=== PATIENT | female | born 2005 | race Caucasian/White ===

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

== ENCOUNTER 2024-05-12 12:32 | Emergency (ER) | payer OTHER, SELFPAY ==
[2024-05-12 13:05] VITALS: BP 156/96; PULSE 100; RESP 20; TEMP 37.4; O2SAT 98; BMI 32.1
--- NOTE | 2024-05-12 13:15 | ED_ITS ---
Discharge Plan Disposition Patient Disposition: Home, Self-Care Condition: Good Prescriptions Prescriptions: New amoxicillin 875 mg tablet 875 mg PO Q12H Qty: 20 0RF Referrals Follow up/Referrals: Jeri Pisano PA [Primary Care Provider] - See instructions Activity Restrictions/Add. Instructions Additional Instructions/Restrictions: *Monitor Temp, Over the counter Motrin or Tylenol as directed/as needed Tylenol every 4 hours and Motrin every 6 hours (as long as your family doctor has told you that you can take it) for fever or pain. and straight to ER if unable to lower temp less than 101.0 after medication given *Warm salt water gargles may help to soothe the throat *Throat Lozenges? *Warm fluids like tea with honey may help to soothe the throat? *Sleep elevated *Humidifier/Vaporizer Follow up IMMEDIATELY for new or worsening symptoms or no Noticeable improvement over the next 48-72 hours. 911 for difficulty breathing or swallowing You were tested for today for COVID19 your test result should be back in the next 24 hours, you may check your results on the [facility]iod[facility] Portal Clinical Impressions Clinical Impression: Otitis media Stand Alone Forms Stand Alone Forms: Work/School Release Instructions Patient Instructions: Middle Ear Infection, DI for COVID-19 (Suspected or Confirmed ) Print Language Print Language: [place] Discharge ED Provider: Mervat Green [facility] [place] HPI General Stated complaint: fever, sinus frances., body aches, chills, headache Mode of Arrival: Ambulatory Source of Information: Patient Limitations: No Limitations Time Seen by Provider: 05/12/24 13:15 Description of Symptoms (Recalled from Triage Doc. by RN): PATIENT C/O BODY ACHES, CONGESTION, HEADACHE, EAR PAIN, FEVER, AND FEELING TIRED X 2 DAYS. RECENTLY EXPOSED TO COVID HEENT Symptoms (Recalled from RN notes): Yes Resp Symptoms (Recalled from RN notes): No Skin Symptoms (Recalled from RN notes): No MS Symptoms (Recalled from RN notes): No Functional Status (Recalled from RN notes): WNL History of Present Illness Provider Complaint: Patient states that she was recently exposed to COVID States that she has been having bilateral ear pain, body aches, headache, fatigue and over all not feeling well so she came in to get checked Related Data Previous Rx's ?Medication ?Instructions ?Recorded amoxicillin 875 mg tablet 875 mg PO Q12H #20 tabs 05/12/24 Allergies Allergy/AdvReac Type Severity Reaction Status Date / Time azithromycin [AZITHROMYCIN] Allergy Unknown I-RASH Verified 04/20/24 13:00 Worker's Comp Is this a Worker's Comp case?: No [facility] Disclaimer: The information contained in this section may have been updated after the patient was seen, as this information can be updated by other users. Medical History (Updated 05/12/24 @ 13:39 by Mervat Green APRN) Encounter for initial prescription of Nexplanon Cough Sinusitis Anxiety and depression Thoracic outlet syndrome Bilateral otitis media Sinusitis Left otitis media Surgical History History of breast biopsy No significant past surgical history Family History Other No significant family history Social History Smoking Status: Never smoker alcohol intake: never substance use type: denies use current occupational status: student Travel in the last 8 weeks: None household members: family housing: house ROS Obtained: Yes All systems reviewed & no additional complaints except as documented and Yes Systems reviewed as appropriate & no additional complaints except as documented Constitutional Constitutional: Reports system reviewed and no additional complaints, except as documented, Reports as per HPI, Reports body ache, Reports chills, Reports fever(s) and Reports headache(s) ENT Ears, Nose, Mouth, and Throat: Reports system reviewed and no additional complaints, except as documented, Reports as per HPI, Reports otalgia, Reports headache(s), Reports nasal congestion and Reports nasal discharge Cardiovascular Cardiovascular: Reports system reviewed and no additional complaints, except as documented and Reports as per HPI Respiratory Respiratory: Reports system reviewed and no additional complaints, except as documented and Reports as per HPI Gastrointestinal Gastrointestingal: Reports system reviewed and no additional complaints, except as documented and as per HPI Neurologic Neurologic: Reports headache(s) Physical Exam General General appearance: alert and in no apparent distress ENT ENT exam: Present mucous membranes moist Expanded ENT Exam TM/Canal exam: Right TM: erythema and Bilateral TM: bulging Nose exam: Absent sinus tenderness Respiratory Respiratory exam: Present normal lung sounds bilaterally; Absent respiratory distress or wheezes Cardiovascular Cardiovascular exam: Present regular rate, normal rhythm and tachycardia Abdominal Exam Abdominal exam: Present soft and normal bowel sounds; Absent distention or tenderness Neurological Exam Neurological exam: Present alert, oriented X3 and normal gait Medical Decision Making [place] Inquiry Pt receiving controlled substance: No [place] was queried for this patient: No Vital Signs: 05/12/24 13:05 Temperature 99.4 F Temperature Source Oral Pulse Rate [Left Brachial] 100 H Respiratory Rate 20 Blood Pressure [Left Arm] 156/96 H Blood Pressure Mean [Left Arm] 116 Blood Pressure Source [Left Arm] Automatic Cuff Blood Pressure Position [Left Arm] Sitting 02 Sat by Pulse Oximetry 98 Oxygen Delivery Method Room Air Orders (Tests/Meds): ORDERS Category Date Time Status Covid-19 Nasal PCR (H) Routine Lab 05/12/24 12:56 Ordered
[2024-05-12 13:42] VITALS: BP 156/96; PULSE 100; RESP 20; TEMP 37.4; O2SAT 98
== END 2024-05-12 13:44 | disposition home or self-care (01) ==
PROVIDERS: Emergency Provider Nurse Practitioner; PCP Student in an Organized Health Care Education/Training Program
DX: H66.91 Otitis media, unspecified, right ear (principal); R50.9 Fever, unspecified; R51.9 Headache, unspecified; H92.03 Otalgia, bilateral; Z20.822 Contact with and (suspected) exposure to COVID-19
CPT/HCPCS: 87635; 99212; 99214; G0463

== ENCOUNTER 2024-05-24 09:18 | Outpatient (CLI) | payer OTHER, SELFPAY ==
[2024-05-24 21:52] LABS: Basophils # 0.1 K/mm3 (0-0.2); Basophils % 0.7 % (0.1-2.0); Eosinophils # 0.1 K/mm3 (0.0-0.4); Eosinophils % 1.4 % (0.1-12.0); Hematocrit 45.7 % (37.0-47.0); Hemoglobin 14.3 g/dL (12.2-16.2); Lymphocytes % 27.6 % (10-50); Mean Corpuscular HGB Conc 31.4 g/dL (31.8-35.4); Mean Corpuscular Hemoglobin 28.7 pg (27.0-31.2); Mean Corpuscular Volume 91.6 fl (81-99); Mean Platelet Volume 9.1 fl (7.4-10.4); Monocytes # 0.5 K/mm3 (0.1-1.0); Monocytes % 7.4 % (1.7-9.3); Neutrophils # 4.6 K/mm3 (1.8-7.8); Platelet Count 379 K/mm3 (142-424); Red Blood Count 4.99 M/mm3 (4.20-5.40); Red Cell Distribution Width 13.7 % (11.5-17.5); White Blood Count 7.2 K/mm3 (4.5-13.0)
[2024-05-24 22:02] LABS: HCG Qualitative, Serum Negative (Negative)
[2024-05-24 22:09] LABS: Alanine Aminotransferase 42 U/L (12-78); Albumin Level 4.6 g/dl (3.5-5.0); Albumin/Globulin Ratio 1.4 (1.1-1.8); Alkaline Phosphatase 68 U/L (38-126); Anion Gap 16.5 mEq/L (5-15); Aspartate Amino Transferase 36 U/L (14-36); Bilirubin,Total 0.5 mg/dl (0.2-1.3); Blood Urea Nitrogen 15 mg/dl (7-17); Calcium 9.7 mg/dl (8.4-10.2); Carbon Dioxide 20 mmol/L (22.0-30.0); Chloride 107 mmol/L (98-107); Chol/HDL Ratio 2.9 (1-3.5); Cholesterol 164 mg/dl (140-200); Estimated Glomerular Filt Rate 107 ml/min (>60); GFR (African American) 129 ML/MIN (>60); Globulin 3.2 g/dL (1.3-3.2); Glucose 96 mg/dl (74-100); HDL Cholesterol 57 mg/dl (40-60); Potassium 4.5 mmoL/L (3.5-5.1); Sodium 139 mmol/L (136-145); Total Protein,Serum 7.8 g/dl (6.3-8.2); Triglycerides 98 mg/dl (30-150); VLDL Cholesterol 20 mg/dL (0-40)
[2024-05-24 22:22] LABS: Direct LDL Cholesterol 92.11 mg/dL (100-129)
[2024-05-24 22:25] LABS: 25-OH Vitamin D, Total 54.9 ng/mL (30-100)
[2024-05-24 22:39] LABS: Thyroid Stimulating Hormone 1.67 uIU/mL (0.465-4.68)
[2024-05-24 23:15] LABS: Vitamin B12 410 pg/mL (239-931)
[2024-05-24 23:30] LABS: Folate 7.84 ng/mL; HIV (1&2) Antibody Rapid NONREACTIVE (NONREACTIVE)
[2024-05-25 00:04] LABS: Iron 77 ug/dL (37-170)
[2024-05-25 00:13] LABS: Total Iron Binding Capacity 349 ug/dL (265-497)
[2024-05-25 00:40] LABS: Ferritin 48.6 ng/ml (6.24-137)
[2024-05-26 08:05] LABS: HCV Ab Non Reactive (Non Reactive)
[2024-05-26 15:15] LABS: EBV Ab VCA, IgM <36.0 U/mL (0.0-35.9); EBV Nuclear Antigen Ab, IgG >600.0 U/mL (0.0-17.9)
[2024-06-01 10:14] LABS: Antinuclear Antibodies (ANA) Non Reactive
== END 2024-05-24 23:59 | disposition home or self-care (01) ==
LOC: LAB.DROPOF 05-25 12:47
PROVIDERS: PCP Student in an Organized Health Care Education/Training Program; Visit Provider Student in an Organized Health Care Education/Training Program
DX: Z13.220 Encounter for screening for lipoid disorders (principal); Z83.49 Family history of other endocrine, nutritional and metabolic diseases; Z83.2 Family history of diseases of the blood and blood-forming organs and certain disorders involving the immune mechanism; R53.83 Other fatigue; Z13.1 Encounter for screening for diabetes mellitus; Z13.21 Encounter for screening for nutritional disorder; Z11.59 Encounter for screening for other viral diseases; Z11.4 Encounter for screening for human immunodeficiency virus [HIV]; Z13.29 Encounter for screening for other suspected endocrine disorder
CPT/HCPCS: 80050; 80053; 80061; 82306; 82607; 82728; 82746; 83036; 83540; 83550; 84443; 84703; 85025; 86038; 86225; 86235; 86664; 86665; 86803; 87389

== ENCOUNTER 2024-06-08 11:30 | Outpatient (CLI) | payer OTHER, SELFPAY ==
[2024-06-08 11:34] LABS: Adenovirus F 40/41, stool Not Detected (NotDetected); Astrovirus Not Detected (NotDetected); Campylobacter Not Detected (NotDetected); Clostridium Difficile A/B, PCR Not Detected (NotDetected); Cryptosporidium Not Detected (NotDetected); Cyclospora Cayetanesis Not Detected (NotDetected); Entamoeba histolytica Not Detected (NotDetected); Enteroaggregative E coli Not Detected (NotDetected); Enteropathogenic E coli Not Detected (NotDetected); Enterotoxigenic E coli Not Detected (NotDetected); Giardia lamblia Not Detected (NotDetected); Norovirus Not Detected (NotDetected); Plesimonas Shigalloides, PCR Not Detected (NotDetected); Rotavirus A Not Detected (NotDetected); Salmonella, PCR Not Detected (NotDetected); Sapovirus Not Detected (NotDetected); Shiga-like toxin E coli Not Detected (NotDetected); Shigella Enterovasive E coli Not Detected (NotDetected); Vibrio Cholerae Not Detected (NotDetected); Vibrio, PCR Not Detected (NotDetected); Yersinia Entercolitica, PCR Not Detected (NotDetected)
[2024-06-09 15:59] LABS: C difficile Toxins AB, EIA Negative (Negative)
== END 2024-06-08 23:59 | disposition home or self-care (01) ==
LOC: LAB 11:31
PROVIDERS: PCP Student in an Organized Health Care Education/Training Program; Visit Provider Nurse Practitioner Family
DX: K52.9 Noninfective gastroenteritis and colitis, unspecified (principal); R11.2 Nausea with vomiting, unspecified; R14.0 Abdominal distension (gaseous); Z86.19 Personal history of other infectious and parasitic diseases
CPT/HCPCS: 87324; 87507

== ENCOUNTER 2024-07-05 10:52 | Outpatient (CLI) | payer OTHER, SELFPAY ==
--- NOTE | 2024-07-05 10:52 | US_ITS ---
PROCEDURE INFORMATION: Exam: US Right Breast, Complete Exam date and time: 07/05/2024 11:03 AM Age: 19 years old Clinical indication: Personal history of papilloma. Follow-up after benign biopsy. Patient had a probably benign mass in the right breast retroareolar region, for short-term follow-up. TECHNIQUE: Imaging protocol: Complete ultrasound of all four quadrants of the right breast and the retroareolar regions, including ultrasound of the axilla when performed. COMPARISON: US BREAST RT COMPLETE 10/30/2023 10:49 AM FINDINGS: ULTRASOUND: Breast ultrasound findings: Mass in the right 11 o'clock axis, 2 cm from the nipple measures 0.4 x 0.4 x 0.4 cm, formerly measuring 0.4 x 0.3 x 0.4 cm, overall stable since 10/30/2023. No suspicious shadowing or distortion. Previously biopsied slightly irregular mass at the 9 o'clock axis is no longer seen on the current study. Biopsy demonstrated a papilloma. No abnormal ductal dilatation. No shadowing or distortion. No right axillary adenopathy. IMPRESSION: The probably benign mass in the right breast 11 o'clock axis, 2 cm from the nipple is overall stable since 10/30/2023 and six-month follow-up right breast ultrasound is recommended for continued close surveillance. ASSESSMENT: BI-RADS Category 3: Probably benign.
== END 2024-07-05 23:59 | disposition home or self-care (01) ==
LOC: RAD 10:52
PROVIDERS: PCP Nurse Practitioner Family; Visit Provider Nurse Practitioner Family
DX: N63.10 Unspecified lump in the right breast, unspecified quadrant (principal)
CPT/HCPCS: 76641

== ENCOUNTER 2024-07-09 15:03 | Emergency (ER) | payer OTHER, SELFPAY ==
[2024-07-09 15:17] VITALS: BP 157/106; PULSE 128; RESP 18; TEMP 36.9; O2SAT 100; BMI 29.7
[2024-07-09 15:30] LABS: UTC Influenza A Antigen Negative (Negative); UTC Strep Screen (Rapid) Negative (Negative)
[2024-07-09 15:31] LABS: UTC Influenza B Antigen Negative (Negative)
--- NOTE | 2024-07-09 15:59 | EXP.UTC ---
Discharge Plan Disposition Patient Disposition: Home, Self-Care Condition: Good Prescriptions Prescriptions: New Stahist AD 25-60 mg tablet 1 tab PO .6-8 hours MDD 3 Qty: 30 0RF No Action Nexplanon 68 mg implant 68 implant subdermal DIRECTED Referrals Follow up/Referrals: Walter Clark [Primary Care Provider] - See instructions Activity Restrictions/Add. Instructions Additional Instructions/Restrictions: Take medication as prescribed. Increase fluids and rest. If symptoms persist or worsen return to clinic/PCP. Check BP three times a week and record. Take record to PCP for a follow up. Hold off on taking Stahist until BP and pulse rate decrease. Avoid energy drinks. Clinical Impressions Clinical Impression: Upper respiratory tract infection, Acute viral pharyngitis Stand Alone Forms Stand Alone Forms: Work/School Release Instructions Patient Instructions: DI for Viral Upper Respiratory Infection -- Adult, DI for Viral Pharyngitis Print Language Print Language: Czech Discharge ED Provider: Nelda Miller [facility] [place] HPI General Stated complaint: congestion Mode of Arrival: Ambulatory Source of Information: Patient Time Seen by Provider: 07/09/24 15:58 Description of Symptoms (Recalled from Triage Doc. by RN): COUGH, SORE THROAT, FEVER, CONGESTION, FATIGUE, SENT HOME FROM WORK HEENT Symptoms (Recalled from RN notes): Yes Resp Symptoms (Recalled from RN notes): Yes Skin Symptoms (Recalled from RN notes): No MS Symptoms (Recalled from RN notes): No Functional Status (Recalled from RN notes): WNL History of Present Illness Provider Complaint: COUGH, SORE THROAT, FEVER, CONGESTION, FATIGUE, SENT HOME FROM WORK. REPORTS THAT FAMILY MEMBERS ARE SICK WITH SIMILAR SYMPTOMS. WORKS IN HEALTHCARE. Of note: Pt BP elevated. Pt state that she drank a Red Bull this morning and has high pulse normally. Discussed the dangers of energy drinks with these symptoms. Related Data Home Medications ?Medication ?Instructions ?Recorded ?Confirmed etonogestrel 68 mg subdermal 68 implant subdermal DIRECTED 05/24/24 07/09/24 implant (Nexplanon) Previous Rx's ?Medication ?Instructions ?Recorded chlorcyclizine-pseudoephedrine 25 1 tab PO .6-8 hours #30 tabs 07/09/24 mg-60 mg tablet (Stahist AD) Allergies Allergy/AdvReac Type Severity Reaction Status Date / Time azithromycin [AZITHROMYCIN] Allergy Unknown I-RASH Verified 06/29/24 09:14 Worker's Comp Is this a Worker's Comp case?: No [facility] Disclaimer: The information contained in this section may have been updated after the patient was seen, as this information can be updated by other users. Medical History Encounter for initial prescription of Nexplanon Nexplanon inserted 04/20/24 Cough Sinusitis Anxiety and depression Thoracic outlet syndrome Bilateral otitis media Sinusitis Left otitis media Surgical History History of breast biopsy No significant past surgical history Family History Other No significant family history Social History Smoking Status: Never smoker alcohol intake: never substance use type: denies use current occupational status: student Travel in the last 8 weeks: None household members: family housing: house ROS Obtained: Yes All systems reviewed & no additional complaints except as documented Constitutional Constitutional: Reports system reviewed and no additional complaints, except as documented, Reports body ache, Reports chills, Reports fever(s), Reports headache(s) and Reports malaise Eyes Eyes: Reports system reviewed and no additional complaints, except as documented ENT Ears, Nose, Mouth, and Throat: Reports system reviewed and no additional complaints, except as documented, Reports headache(s), Reports nasal discharge, Reports odynophagia and Reports sore throat Cardiovascular Cardiovascular: Reports system reviewed and no additional complaints, except as documented Respiratory Respiratory: Reports system reviewed and no additional complaints, except as documented Gastrointestinal Gastrointestingal: Reports system reviewed and no additional complaints, except as documented and odynophagia Genitourinary Female Genitourinary: Reports system reviewed and no additional complaints, except as documented Musculoskeletal Musculoskeletal: Reports system reviewed and no additional complaints, except as documented Integumentary/Breasts Skin/Breast: Reports system reviewed and no additional complaints, except as documented Neurologic Neurologic: Reports system reviewed and no additional complaints, except as documented and Reports headache(s) Endocrine Endocrine: Reports system reviewed and no additional complaints, except as documented Hematologic/Lymphatic Henatologic/Lymphatic: Reports system reviewed and no additional complaints, except as documented Allergic/Immunologic Allergic/Immunologic: Reports system reviewed and no additional complaints, except as documented Physical Exam General General appearance: alert Comment: ill appearing Head Head exam: atraumatic and normocephalic Eye Eye exam: Present normal appearance ENT ENT exam: Present mucous membranes moist Expanded ENT Exam External ear exam: Present normal external inspection Nasal speculum exam: Bilateral: other (clear drainage) Mouth exam: Present normal external inspection Teeth exam: Present normal inspection Throat exam: Present tonsillar erythema Comment: soft palate tiny ulceration. Neck Neck exam: Present normal inspection Chest Chest inspection: Present normal inspection and symmetric chest wall rise Respiratory Respiratory exam: Present normal lung sounds bilaterally Cardiovascular Cardiovascular exam: Present regular rate and normal rhythm Abdominal Exam Abdominal exam: Present soft and normal bowel sounds Extremities Exam Extremities exam: Present normal inspection Back Exam Back exam: Present normal inspection Neurological Exam Neurological exam: Present alert and oriented X3 Psychiatric Psychiatric exam: Present normal affect and normal mood Skin Skin exam: Present warm, dry and intact Lymphatic Lymphatic Findings: no adenopathy Medical Decision Making Medical Records Screening: Per USPSTF and CDC recommendations, given the prevalence of disease in our region, it is our hospital?s policy to screen for HIV and viral Hepatitis for all patients aged 18 and over and those with ongoing risk factors. Sidney Inquiry Pt receiving controlled substance: No Sidney was queried for this patient: No Vital Signs: 07/09/24 15:17 Temperature 98.4 F Temperature Source Oral Pulse Rate [Left Radial] 128 H Respiratory Rate 18 Blood Pressure [Left Arm] 157/106 H Blood Pressure Mean [Left Arm] 123 02 Sat by Pulse Oximetry 100 Lab Data Lab Results 07/09/24 15:22: Influenza Type A Ag Negative, Influenza Type B Ag Negative, Strep Scn Rapid Clinic Negative Orders (Tests/Meds): ORDERS Category Date Time Status Strep Screen Confirmation Stat Micro 07/09/24 15:22 Received
[2024-07-09 16:28] VITALS: BP 140/80; PULSE 128; RESP 18; TEMP 36.9
== END 2024-07-09 16:29 | disposition home or self-care (01) ==
PROVIDERS: Emergency Provider Nurse Practitioner Family; PCP Ophthalmology
DX: J02.9 Acute pharyngitis, unspecified (principal)
CPT/HCPCS: 87635; 87804; 87880; 99213; G0381

== ENCOUNTER 2024-07-26 08:34 | Emergency (ER) | payer OTHER, SELFPAY ==
[2024-07-26 08:45] VITALS: BP 143/86; PULSE 101; RESP 19; TEMP 36.8; O2SAT 100; BMI 31.4
--- NOTE | 2024-07-26 09:00 | EXP.UTC ---
Discharge Plan Disposition Patient Disposition: Home, Self-Care Condition: Good Prescriptions Prescriptions: No Action Nexplanon 68 mg implant 68 implant subdermal DIRECTED Referrals Follow up/Referrals: Jeri Pisano PA [Primary Care Provider] - See instructions Activity Restrictions/Add. Instructions Additional Instructions/Restrictions: You were evaluated in the ER and are appropriate for discharge at this time. Take Tylenol or ibuprofen if needed for pain, do not exceed the recommended dose on the bottle. Make an appointment with your primary care doctor for reevaluation in 2 to 3 days, also follow-up with OB as soon as possible. Return to the ER with new, worsening, or otherwise concerning symptoms. Clinical Impressions Clinical Impression: Left sided abdominal pain Stand Alone Forms Stand Alone Forms: Work/School Release Instructions Patient Instructions: DI for Acute Abdominal Pain Print Language Print Language: Dutch Discharge ED Provider: Mervat Green [facility] General Chief complaint: Abdominal Pain Stated complaint: possible kidney infection Mode of Arrival: Ambulatory Source of Information: Patient Limitations: No Limitations Time Seen by Provider: 07/26/24 09:00 Description of Symptoms (Recalled from Triage Doc. by RN): PATIENT C/O LLQ PAIN THAT STARTED THURSDAY HEENT Symptoms (Recalled from RN notes): No Resp Symptoms (Recalled from RN notes): No Skin Symptoms (Recalled from RN notes): No MS Symptoms (Recalled from RN notes): No Functional Status (Recalled from RN notes): WNL History of Present Illness Provider Complaint: Patient states that she started with pain in her left lower abdomen on Thursday that started out just hurting when she would urinate but has got worse over the last few days and now is a constant achy like feeling that she rates a 5-6 out of 10 Denies fever, denies chills last BM yesterday Related Data Home Medications ?Medication ?Instructions ?Recorded ?Confirmed etonogestrel 68 mg subdermal 68 implant subdermal DIRECTED 05/24/24 07/26/24 implant (Nexplanon) Allergies Allergy/AdvReac Type Severity Reaction Status Date / Time azithromycin (AZITHROMYCIN) Allergy Unknown I-RASH Verified 06/29/24 09:14 Worker's Comp Is this a Worker's Comp case?: No [facility] Disclaimer: The information contained in this section may have been updated after the patient was seen, as this information can be updated by other users. Medical History Encounter for initial prescription of Nexplanon Nexplanon inserted 04/20/24 Cough Sinusitis Anxiety and depression Thoracic outlet syndrome Bilateral otitis media Sinusitis Left otitis media Surgical History History of breast biopsy No significant past surgical history Family History Other No significant family history Social History Smoking Status: Never smoker alcohol intake: never substance use type: denies use current occupational status: student Travel in the last 8 weeks: None household members: family housing: house ROS Obtained: Yes All systems reviewed & no additional complaints except as documented and Yes Systems reviewed as appropriate & no additional complaints except as documented Constitutional Constitutional: Reports system reviewed and no additional complaints, except as documented, Reports as per HPI, Denies body ache, Denies chills and Denies fever(s) Eyes Eyes: Reports system reviewed and no additional complaints, except as documented and Reports as per HPI ENT Ears, Nose, Mouth, and Throat: Reports system reviewed and no additional complaints, except as documented and Reports as per HPI Cardiovascular Cardiovascular: Reports system reviewed and no additional complaints, except as documented and Reports as per HPI Respiratory Respiratory: Reports system reviewed and no additional complaints, except as documented, Reports as per HPI, Denies shortness of breath and Denies cough Gastrointestinal Gastrointestingal: Reports system reviewed and no additional complaints, except as documented, as per HPI and abdominal pain; Denies diarrhea, nausea or vomiting Genitourinary Female Genitourinary: Reports system reviewed and no additional complaints, except as documented and Reports as per HPI Musculoskeletal Musculoskeletal: Reports system reviewed and no additional complaints, except as documented and Reports as per HPI Physical Exam General General appearance: alert and in no apparent distress Respiratory Respiratory exam: Present normal lung sounds bilaterally; Absent respiratory distress or wheezes Cardiovascular Cardiovascular exam: Present regular rate, normal rhythm and tachycardia Abdominal Exam Abdominal exam: Present soft and tenderness (reports tenderness with palpation in left lower quad); Absent distention Neurological Exam Neurological exam: Present alert, oriented X3 and normal gait Medical Decision Making Medical Records Screening: Per USPSTF and CDC recommendations, given the prevalence of disease in our region, it is our hospital?s policy to screen for HIV and viral Hepatitis for all patients aged 18 and over and those with ongoing risk factors. Sidney Inquiry Pt receiving controlled substance: No Sidney was queried for this patient: No Vital Signs: 07/26/24 08:45 Temperature 98.3 F Temperature Source Oral Pulse Rate [Left Brachial] 101 H Respiratory Rate 19 Blood Pressure [Left Arm] 143/86 H Blood Pressure Mean [Left Arm] 105 Blood Pressure Source [Left Arm] Automatic Cuff Blood Pressure Position [Left Arm] Sitting 02 Sat by Pulse Oximetry 100 Oxygen Delivery Method Room Air Lab Data Lab results reviewed: Yes I reviewed the patient's lab results. 07/26/24 09:20 07/26/24 09:20 Orders (Tests/Meds): ORDERS Category Date Time Status Urine Culture Stat Micro 07/26/24 08:51 Ordered Medical Decision Narrative: Patient complaining of pain in her left lower abdomen that started on Thursday and only noticed when she would urinate but now has become a constant pain in her left lower abdomen that is very uncomfortable reports last BM was yesterday and she had 2 and they was normal, denies burning with urination denies known fever States that pain is a 5-6 out of 10 Discussed with patient and recommended transfer to the ED for furhter work up and evaluaiton and she initially declined then agreed Called Ed and patient was moved to room 8
--- NOTE | 2024-07-26 09:08 | PC.NURSE ---
PATIENT SENT TO ER PER Alejandra RIVERA APRN FOR FURTHER EVALUATION. REPORT GIVEN TO Alyssa ALEXANDRA RN BY Alejandra RIVERA APRN. PATIENT AMBULATED TO ER WITH [facility] STAFF AT THIS TIME. FAMILY AT BEDSIDE
[2024-07-26 09:10] LABS: Apearance,Urine Clear (Clear); Bilirubin,Urine Negative (Negative); Blood, Urine Negative (Negative); Color,Urine Dark Yellow (Yellow); Glucose,Urine (UA) Negative (Negative); Ketones,Urine Negative (Negative); Protein,Urine Negative (Negative); Specific Gravity, Urine 1.025 (1.005-1.030); UTC Leukocyte Esterase,Urine Negative (Negative); UTC Nitrate,Urine Negative (Negative); UTC Pregnancy Test, Urine Negative (Negative); Urobilinogen,Urine 0.2 EU/dl (0.2)
[2024-07-26 09:12] VITALS: BP 173/112; PULSE 115; RESP 18; TEMP 36.8; O2SAT 100; BMI 31.3
--- NOTE | 2024-07-26 09:13 | CT_ITS ---
PROCEDURE INFORMATION: Exam: CT Abdomen And Pelvis With Contrast Exam date and time: 07/26/2024 9:36 AM Age: 19 years old Clinical indication: Abdominal pain; Additional info: Llq pain worse with urination, now rlq pain too TECHNIQUE: Imaging protocol: Computed tomography of the abdomen and pelvis with contrast. Radiation optimization: All CT scans at this facility use at least one of these dose optimization techniques: automated exposure control; mA and/or kV adjustment per patient size (includes targeted exams where dose is matched to clinical indication); or iterative reconstruction. Contrast material: ISOVUE; Contrast volume: 75 ml; Contrast route: IV; COMPARISON: CT ABDOMEN PELVIS W CON 05/01/2021 10:38 AM FINDINGS: Lungs: Calcified granulomas are again seen in the left lower lobe. Liver: Normal. No mass. Gallbladder and biliary ducts: Normal. No calcified stones. No ductal dilation. Pancreas: Normal. No ductal dilation. Spleen: Normal. No splenomegaly. Adrenal glands: Normal. No mass. Kidneys and ureters: Normal. No hydronephrosis. Stomach and bowel: Unremarkable. No obstruction. No mucosal thickening. Appendix: No evidence of appendicitis. Intraperitoneal space: Unremarkable. No free air. No significant fluid collection. Vasculature: Unremarkable. No abdominal aortic aneurysm. Lymph nodes: Unremarkable. No enlarged lymph nodes. Urinary bladder: Unremarkable as visualized. Reproductive: Unremarkable as visualized. Bones/joints: Unremarkable. No acute fracture. Soft tissues: Unremarkable. IMPRESSION: No evidence of acute process.
--- NOTE | 2024-07-26 09:15 | ED_ITS ---
Discharge Plan Prescriptions Prescriptions: No Action Nexplanon 68 mg implant 68 implant subdermal DIRECTED Referrals Follow up/Referrals: Jeri Pisano PA [Primary Care Provider] - See instructions Activity Restrictions/Add. Instructions Additional Instructions/Restrictions: You were evaluated in the ER and are appropriate for discharge at this time. Take Tylenol or ibuprofen if needed for pain, do not exceed the recommended dose on the bottle. Make an appointment with your primary care doctor for reevaluation in 2 to 3 days, also follow-up with OB as soon as possible. Return to the ER with new, worsening, or otherwise concerning symptoms. Clinical Impressions Clinical Impression: Left sided abdominal pain Instructions Patient Instructions: DI for Acute Abdominal Pain Print Language Print Language: Danish Discharge ED Provider: Mervat Green Adult HPI General Chief complaint: Abdominal Pain Stated complaint: possible kidney infection Time Seen by Provider: 07/26/24 09:00 Mode of Arrival: Ambulatory Source of Information: Patient Limitations: No Limitations Description of Symptoms (Recalled from ER Triage Doc. by RN): PATIENT C/O LLQ PAIN THAT STARTED THURSDAY History of Present Illness HPI narrative: Otherwise healthy 19-year-old female presents to the ER with complaints of left lower quadrant abdominal pain. Patient states her pain has been going on for the last 4 days but has been gradually worsening. She denies constipation or diarrhea. She states her pain is constant but worse with urination. She states in the last day she is also started to develop right lower quadrant pain. She went to urgent care where they said she had protein in her urine and her test was negative, they referred her to the ER for further evaluation. Patient reports she has had mild nausea but no vomiting, no changes in her bowel habits, no other abdominal pain. She has never been , has a Nexplanon implant for control. Patient denies fevers, chills, chest pain, difficulty breathing, back pain, flank pain, hematuria, or any other associated symptoms. Related Data Home Medications ?Medication ?Instructions ?Recorded ?Confirmed etonogestrel 68 mg subdermal 68 implant subdermal DIRECTED 05/24/24 07/26/24 implant (Nexplanon) Allergies Allergy/AdvReac Type Severity Reaction Status Date / Time azithromycin (AZITHROMYCIN) Allergy Unknown I-RASH Verified 06/29/24 09:14 [facility] Disclaimer: The information contained in this section may have been updated after the patient was seen, as this information can be updated by other users. Medical History Encounter for initial prescription of Nexplanon Nexplanon inserted 04/20/24 Cough Sinusitis Anxiety and depression Thoracic outlet syndrome Bilateral otitis media Sinusitis Left otitis media Surgical History History of breast biopsy No significant past surgical history Family History Other No significant family history Social History Smoking Status: Never smoker alcohol intake: never substance use type: denies use current occupational status: student Travel in the last 8 weeks: None household members: family housing: house Other Medical History Have you received the Flu Vaccine for this season: No Have you received the Pneumonia Vaccine: No ROS Obtained: Yes Systems reviewed as appropriate & no additional complaints except as documented ROS per HPI Physical Exam General General appearance: alert and in no apparent distress Head Head exam: atraumatic and normocephalic Eye Eye exam: Present PERRL and EOMI ENT ENT exam: Present mucous membranes moist Neck Neck exam: Present normal inspection and full ROM Chest Chest inspection: Present symmetric chest wall rise Respiratory Respiratory exam: Absent respiratory distress or stridor Cardiovascular Cardiovascular exam: Present regular rate and normal rhythm Abdominal Exam Abdominal exam: Present soft and tenderness (Mild left mid abdomen-lower quadrant without rebound or guarding); Absent distention, guarding or rebound Extremities Exam Extremities exam: Present full ROM Neurological Exam Neurological exam: Present alert, oriented X3, CN II-XII intact and normal gait; Absent motor sensory deficit Psychiatric Psychiatric exam: Present normal affect and normal mood Skin Skin exam: Present warm and dry Medical Decision Making Medical Records Medical records reviewed: Yes I reviewed the patient's medical records. Screening: Per USPSTF and CDC recommendations, given the prevalence of disease in our region, it is our hospital?s policy to screen for HIV and viral Hepatitis for all patients aged 18 and over and those with ongoing risk factors. MR Comment: OB note demonstrates patient had Kyleena IUD removed in April 2024 and Nexplanon implanted at that time after having chronic cramping with the IUD. [place] Inquiry Pt receiving controlled substance: No Vital Signs: 07/26/24 08:45 07/26/24 09:12 07/26/24 10:18 Temperature 98.3 F 98.3 F Temperature Source Oral Oral Pulse Rate 105 H Pulse Rate [Left Brachial] 101 H 115 H Respiratory Rate 19 18 Blood Pressure 155/118 H Blood Pressure [Left Arm] 143/86 H Blood Pressure [Right Arm] 173/112 H Blood Pressure Mean 138 Blood Pressure Mean [Left Arm] 105 Blood Pressure Mean [Right Arm] 132 Blood Pressure Source [Left Arm] Automatic Cuff Blood Pressure Position [Left Arm] Sitting 02 Sat by Pulse Oximetry 100 100 98 Oxygen Delivery Method Room Air Room Air Lab Data Lab Results 07/26/24 08:40: Urine Color Yellow, Urine Appearance Clear, Urine pH 7.0, Ur Specific [place] 1.020, Urine Protein Negative, Urine Glucose (UA) Negative, Urine Ketones Negative, Urine Blood Negative, Urine Nitrate Negative, Urine Bilirubin Negative, Urine Urobilinogen 0.2, Ur Leukocyte Esterase Negative, Urine RBC None, Urine WBC None, Ur Squamous Epith Cells Occasional, Urine Bacteria Trace 07/26/24 08:51: Urine Color Dark yellow, Urine Appearance Clear, Urine pH 7.0, Ur Specific [place] 1.025, Urine Protein Negative, Urine Glucose (UA) Negative, Urine Ketones Negative, Urine Blood Negative, Urine Nitrate Negative, Urine Bilirubin Negative, Urine Urobilinogen 0.2, Ur Leukocyte Esterase Negative, Tst Clinic Negative 07/26/24 09:20: WBC 7.4, RBC 5.29, Hgb 15.0, Hct 43.9, MCV 83.0, MCH 28.4, MCHC 34.2, RDW 13.9, Plt Count 334, MPV 8.1, Neut % (Auto) 71.9, Lymph % (Auto) 18.5, [place] % (Auto) 7.9, Eos % (Auto) 1.0, Baso % (Auto) 0.7, Neut # (Auto) 5.3, Lymph # (Auto) 1.4, [place] # (Auto) 0.6, Eos # (Auto) 0.1, Baso # (Auto) 0.1, PT 10.7, INR 0.95, Sodium 141, Potassium 4.1, Chloride 105, Carbon Dioxide 24, Anion Gap 16.1 H, BUN 10, Creatinine 0.80, Estimated Creat Clear 161, Estimated GFR 91, Est GFR ( Amer) 111, Glucose 120 H, Calcium 9.8, Total Bilirubin 0.7, AST 47 H, ALT 60, Alkaline Phosphatase 63, Total Protein 8.4 H, Albumin 5.0, G lobulin 3.4 H, Albumin/Globulin Ratio 1.5 07/26/24 09:20 07/26/24 09:20 Orders (Tests/Meds): ED MEDICATIONS Generic Name Dose Route Start Last Admin Trade Name Freq PRN Reason Stop Dose Admin Sodium Chloride 10 ml 07/26/24 09:42 07/26/24 09:43 Sodium Chloride 0.9% 10ml Syr (Rad Only) IV 08/25/24 09:41 10 ml NEEDED PRN Administration Maintain IV Site Discontinued Medications Generic Name Dose Route Start Last Admin Trade Name Freq PRN Reason Stop Dose Admin Iopamidol 75 ml 07/26/24 09:42 07/26/24 09:43 Iopamidol-370 (76%);100ml Bottle IV 07/26/24 09:43 75 ml ONCE ONE Administration Ketorolac Tromethamine 30 mg 07/26/24 09:14 07/26/24 09:25 Ketorolac 30mg/Ml Vial IV 07/26/24 09:15 30 mg ONCE ONE Administration Oxycodone HCl 5 mg 07/26/24 11:34 07/26/24 11:36 Oxycodone 5mg Immediate Release Tablet PO 07/26/24 11:35 5 mg ONCE ONE Administration ORDERS Category Date Time Status CT abdomen pelvis w con Stat Cat Scan 07/26/24 09:13 Completed US transvaginal Stat Exams 07/26/24 11:32 Completed CBC w/Auto Diff [Complete Blood Count Auto Diff] Stat Lab 07/26/24 09:20 Completed CMP [Comprehensive Metabolic Panel] Stat Lab 07/26/24 09:20 Completed PT INR [Prothrombin Time INR] Stat Lab 07/26/24 09:20 Completed Urinalysis and Microscopic Stat Lab 07/26/24 08:40 Completed Urine Culture Stat Micro 07/26/24 08:40 Received Medical Decision Narrative: In summary, this 19-year-old female presents to the emergency department today with left lower quadrant abdominal pain worsening over the last 4 days as well as mild right lower quadrant abdominal pain, pain worse with urination but no urethral dysuria, hematuria, or other associated symptoms aside from nausea. On initial evaluation patient is hemodynamically stable, afebrile, she has tenderness to palpation of the left lower quadrant without rebound or guarding, no peritonitis appreciated on exam, remainder of exam benign. Differential diagnosis includes but is not limited to urinary tract infection, colitis, enteritis, considered kidney stone, bladder stone, ovarian cyst, I considered the possibility of ovarian torsion but have lower suspicion for this since patient has had gradually worsening pain since Thursday which is not characteristic of ovarian torsion. Based on these concerns, I ordered serum labs, UA, CT imaging. test from [facility] was reviewed and is negative. Patient received Toradol initially in the ER for treatment of pain. Labs reviewed demonstrate normal CBC and PT/INR, CMP unremarkable and nonactionable, trace elevation in AST is nonspecific and nonactionable, UA negative for findings of infection, no proteinuria. CT abdomen pelvis personally interpreted does not demonstrate any acute intra- abdominal pathology, I do not appreciate ovarian cyst or mass, no obvious findings of colitis or enteritis. See radiology read for final interpretation. While awaiting the results of CT, patient had worsening pain in the left lower quadrant. I considered the possibility of intermittent torsion so I sent the patient for transvaginal ultrasound. She received oxycodone before ultrasound. Transvaginal ultrasound was normal, patient does not have cysts or masses on the ovaries, she has normal follicles and good blood flow to both ovaries. Without masses or other abnormalities of the ovaries, extremely unlikely patient is having any episodes of torsion. On reassessment patient is stable and resting comfortably, she is not having pain at this time. With very reassuring broad lab and imaging workup, I believe she is appropriate for discharge. Patient was given instructions on symptomatic management, follow up instructions, and return precautions for the emergency department. Patient indicated understanding and was discharged in stable condition. Critical Care Critical Care Time Critical Care Time: No
[2024-07-26 09:21] LABS: Microscopic, Urine URINE MICROSCOPIC (MICROSCOPIC)
[2024-07-26] MEDS: KETOROLAC 30MG/ML VIAL 30 MG IV (09:25)
[2024-07-26 09:27] LABS: Appearance,Urine CLEAR (Clear); Bilirubin,Urine Negative (Negative); Blood, Urine Negative (Negative); Color,Urine YELLOW (Yellow); Glucose,Urine (UA) Negative (Negative); Ketones,Urine Negative (Negative); Leukocyte Esterase,Urine Negative (Negative); Nitrate,Urine Negative (Negative); Protein,Urine Negative (Negative); Urobilinogen,Urine 0.2 EU/dl (0.2)
[2024-07-26 09:33] LABS: Bacteria,Urine Trace /lpf; Squamous Epithelial Cell,Urine Occasional #/hpf (0-5)
[2024-07-26 09:35] LABS: Chloride 105 mmol/L (98-107); Sodium 141 mmol/L (136-145)
[2024-07-26 09:36] LABS: Potassium 4.1 mmoL/L (3.5-5.1)
[2024-07-26 09:38] LABS: Alanine Aminotransferase 60 U/L (12-78); Albumin/Globulin Ratio 1.5 (1.1-1.8); Alkaline Phosphatase 63 U/L (38-126); Anion Gap 16.1 mEq/L (5-15); Aspartate Amino Transferase 47 U/L (14-36); Bilirubin,Total 0.7 mg/dl (0.2-1.3); Blood Urea Nitrogen 10 mg/dl (7-17); Calcium 9.8 mg/dl (8.4-10.2); Carbon Dioxide 24 mmol/L (22.0-30.0); Creatinine Clearance Estimated 161 mL/min (50-200); Estimated Glomerular Filt Rate 91 ml/min (>60); GFR (African American) 111 ML/MIN (>60); Globulin 3.4 g/dL (1.3-3.2); Glucose 120 mg/dl (74-100); Total Protein,Serum 8.4 g/dl (6.3-8.2)
[2024-07-26 09:43] LABS: Basophils # 0.1 K/mm3 (0-0.2); Basophils % 0.7 % (0.1-2.0); Eosinophils # 0.1 K/mm3 (0.0-0.4); Hematocrit 43.9 % (37.0-47.0); Lymphocytes # 1.4 K/mm3 (0.7-4.5); Lymphocytes % 18.5 % (10-50); Mean Corpuscular HGB Conc 34.2 g/dL (31.8-35.4); Mean Corpuscular Hemoglobin 28.4 pg (27.0-31.2); Mean Platelet Volume 8.1 fl (7.4-10.4); Monocytes # 0.6 K/mm3 (0.1-1.0); Monocytes % 7.9 % (1.7-9.3); Neutrophils # 5.3 K/mm3 (1.8-7.8); Neutrophils % 71.9 % (37.0-80.0); Platelet Count 334 K/mm3 (142-424); Red Blood Count 5.29 M/mm3 (4.20-5.40); Red Cell Distribution Width 13.9 % (11.5-17.5); White Blood Count 7.4 K/mm3 (4.5-13.0)
[2024-07-26] MEDS: IOPAMIDOL-370 (76%);100ML BOTTLE 75 ML IV (09:43)
[2024-07-26] MEDS: SODIUM CHLORIDE 0.9% 10ML SYR (RAD ONLY) 10 ML IV (09:43)
[2024-07-26 09:49] LABS: INR 0.95 (0.9-1.1); Prothrombin Time 10.7 seconds (10.1-12.5)
[2024-07-26 10:18] VITALS: BP 155/118; PULSE 105; O2SAT 98
--- NOTE | 2024-07-26 11:32 | US_ITS ---
PROCEDURE INFORMATION: Exam: US Pelvis, Transvaginal, Non-Obstetric Exam date and time: 07/26/2024 11:35 AM Age: 19 years old Clinical indication: Pelvic pain TECHNIQUE: Imaging protocol: Real-time transvaginal pelvic (non-obstetric) ultrasound with image documentation. Transvaginal imaging was used for better evaluation of the endometrium, adnexa, and/or cervix. COMPARISON: US TRANSVAGINAL 04/01/2022 3:34 PM FINDINGS: Uterus: Uterus is normal. Endometrial stripe is normal. Right ovary/adnexa: Subcentimeter follicles are identified. No mass. Normal ovarian blood flow on color Doppler. Left ovary/adnexa: Subcentimeter follicles are identified. No mass. Normal ovarian blood flow on color Doppler. Urinary bladder: Urinary bladder is limited. Intraperitoneal space: No free fluid. IMPRESSION: No acute findings.
[2024-07-26] MEDS: OXYCODONE 5MG IMMEDIATE RELEASE TABLET 5 MG PO (11:36)
[2024-07-26 13:19] VITALS: BP 158/105; PULSE 120; RESP 16; TEMP 36.7
== END 2024-07-26 13:20 | disposition home or self-care (01) ==
LOC: UTC 09:08 → ER 09:12
PROVIDERS: Emergency Medicine; Emergency Provider Nurse Practitioner; PCP Student in an Organized Health Care Education/Training Program
DX: R10.32 Left lower quadrant pain (principal)
CPT/HCPCS: 74177; 76830; 80053; 81001; 81003; 81025; 85025; 85610; 87086; 87088; 87186; 96374; 99285; J1885; Q9967

== ENCOUNTER 2024-08-10 06:53 | Day surgery (SDC) | payer OTHER, SELFPAY ==
[2024-08-02 15:08] VITALS: BMI 30.4
[2024-08-10] MEDS: LACTATED RINGERS 1000ML 1,000 ML 25 ML IV (07:44)
[2024-08-10 07:49] VITALS: BP 177/105; PULSE 128; RESP 18; TEMP 36.3; O2SAT 100; BMI 30.4
[2024-08-10 07:54] LABS: Urine Pregnancy, HCG Qual. Negative (Negative)
--- NOTE | 2024-08-10 08:08 | P.PNANES_ITS ---
[facility] Disclaimer: The information contained in this section may have been updated after the patient was seen, as this information can be updated by other users. Medical History Thoracic outlet syndrome of both thoracic outlets Encounter for initial prescription of Nexplanon Cough Sinusitis Anxiety and depression Thoracic outlet syndrome Bilateral otitis media Sinusitis Left otitis media Surgical History History of thoracic surgery H/O decompression of ulnar nerve History of breast biopsy Family History Other No significant family history Social History Smoking Status: Never smoker alcohol intake: never substance use type: denies use current occupational status: student Travel in the last 8 weeks: None household members: family housing: house [facility] Anesthesia Checklist Patient Identification Patient Identification: Arm Band Structural Data Admitted From: Home Planned Operative Procedure/s: EGD/Colonoscopy Consent for Planned Operative Procedure(s) Verified: Yes Verified Documents: Surgical Consent and History and Physical NPO Status Verified Time NPO: 00:00 Additional verifications Anesthesia Reactions: No Hx Blood Transfusions: No Blood Transfusion Reaction: No Airway Assessment Mallampati Score:: Class II C-Spine Mobility Assessed: Yes TMJ Mobility Assessed: Yes Dentition: Good Dentition Neurological Assessment Level of Consciousness: Awake, Alert and Appropriate Anesthesia Plan Anesthesia Risk discussed: Yes Anesthesia Plan: Verified ASA Class: II Anesthesia Type: MAC
[2024-08-10 08:21] VITALS: O2SAT 100
--- NOTE | 2024-08-10 08:35 | EXP.HP ---
History of Present Illness *Admission Date: 08/10/24 *Reason for visit:: Nausea and vomiting and diarrhea *History of present illness: Mrs. Briseno is a 19-year-old female who is here for diagnostic panendoscopy secondary to nausea, vomiting and diarrhea. She also has some left upper quadrant abdominal pain, gassiness and bloating. The examination is deemed medically necessary for EGD and colonoscopy. The patient has been seen, interviewed and examined prior to the procedure by both myself and the anesthesia provider. [facility] Disclaimer: The information contained in this section may have been updated after the patient was seen, as this information can be updated by other users. Medical History Thoracic outlet syndrome of both thoracic outlets Encounter for initial prescription of Nexplanon Cough Sinusitis Anxiety and depression Thoracic outlet syndrome Bilateral otitis media Sinusitis Left otitis media Surgical History History of thoracic surgery H/O decompression of ulnar nerve History of breast biopsy Family History Other No significant family history Social History Smoking Status: Never smoker alcohol intake: never substance use type: denies use current occupational status: student Travel in the last 8 weeks: None household members: family housing: house Other Medical History Have you received the Flu Vaccine for this season: No Have you received the Pneumonia Vaccine: No Review of Systems Review of Systems Review of systems (narrative): Negative *Cardiovascular Comments: Negative *Gastrointestinal Comments: Negative *Genitourinary Comments: Negative *Musculoskeletal Comments: Negative *Neurologic Comments: Negative Meds Home Medications and Allergies Home Medications ?Medication ?Instructions ?Recorded ?Confirmed ?Type etonogestrel 68 mg subdermal 68 implant subdermal DIRECTED 05/24/24 08/10/24 History implant (Nexplanon) New Prescriptions to Start Prescriptions: Allergies Allergy/AdvReac Type Severity Reaction Status Date / Time azithromycin (AZITHROMYCIN) Allergy Unknown I-RASH Verified 08/10/24 07:48 Exam Data for Last 24 hours Vital signs and Labs for Last 24 Hours: Temp Pulse Resp BP Pulse Ox O2 Del Method O2 Flow Rate 97.4 F L 128 H 18 177/105 H 100 Nasal Cannula 5 08/10/24 07:49 08/10/24 07:49 08/10/24 07:49 08/10/24 07:49 08/10/24 07:49 08/10/24 08:21 08/10/24 08:21 Laboratory Results - last 24 hr 08/10/24 07:36: Urine HCG, Qual Negative I & O for Last 24 hours: Intake & Output 08/07/24 08/08/24 08/09/24 08/10/24 23:59 23:59 23:59 23:59 Weight 200 lb *Routine HEENT Exam Head: Present normocephalic Eye: Present EOMI and PERRL ENT: Present mucous membranes moist *Routine Neck Exam Neck: Present supple *Routine Respiratory Exam Respiratory: Present CTA bilaterally *Routine Cardiovascular Exam Cardiovascular: Present RRR *Routine Abdominal Exam Abdominal: Present soft and normoactive bowel sounds; Absent tenderness *Routine Rectal Exam Rectal:: deferred *Routine Genitalia Exam Genitalia:: deferred *Routine Extremities Exam Extremities: Absent cyanosis, clubbing or edema *Routine Skin Exam Skin: Present warm; Absent rash *Routine Neurological Exam Neurological: Present alert and oriented X3 Assessment and Plan *Assessment and plan (1) Nausea & vomiting: Status: Acute Category: Medical Code(s): R11.2 - Nausea with vomiting, unspecified (2) Chronic diarrhea: Status: Acute Category: Medical Code(s): K52.9 - Noninfective gastroenteritis and colitis, unspecified (3) Bloating: Status: Acute Category: Medical Code(s): R14.0 - Abdominal distension (gaseous) (4) Left sided abdominal pain: Status: Acute Category: Medical Code(s): R10.9 - Unspecified abdominal pain Plan A/P: 1. Nausea/vomiting, diarrhea and left upper quadrant abdominal pain is the preprocedural diagnosis. The patient will be anesthetized/sedated using MAC sedation. The patient has been seen and examined. Cardiac and lung assessment prior to the examination is stable. Proceed with planned EGD and colonoscopy
--- NOTE | 2024-08-10 08:37 | HMH.PROCNOTE ---
[facility] Procedure Note Date: 08/10/24 Time: 08:42 Procedure Note:: Upper Endoscopy Procedure Report: Esophagogastroduodenoscopy with cold biopsies Endoscopost: Donal Kennedy II, MD Referring Physician: Jeri Pisano PA-C Date of Procedure: August 10, 2024 Equipment: Olympus GIF 190 standard upper endoscope Sedation: MAC sedation Indications: Mrs. Briseno is a 19-year-old female who was diagnosed with C. difficile at the age of 14. This was successfully treated. Since then, she has had diarrhea daily that never resolved. She has 2 or 3 diarrhea stools with fecal urgency. She does have moderate gassiness, bloating and left upper quadrant abdominal pain. She also has had nausea with intermittent vomiting. She has never had gallbladder issues. She will have occasional heartburn and reports no dysphagia. She has never had EGD or colonoscopy. She does have a history of thoracic outlet syndrome and has been followed by [facility]. The patient's labs on 07/26 showed normal hemoglobin/hematocrit (15.0/43.9). Her chemistries were normal with normal ALT 60 and alkaline phosphatase 63. She had stool PCR testing on 06/08 that was normal. Her fecal calprotectin was less than 16 in August 2020. Procedure: Prior to the procedure, a history and physical exam was performed, and patient's medications and allergies were reviewed. The risks, benefits and alternatives of the sedation and procedure were discussed with the patient. All questions were answered and informed consent was obtained. The patient was brought to the procedure room. Patient identification and proposed procedure were verified by the physician and the nurse. The patient was placed in a left lateral decubitus position and the scope was passed under direct vision. Throughout the procedure, the patient's blood pressure, pulse, and oxygen saturations were monitored continuously. The upper GI endoscopy was accomplished without difficulty. The patient tolerated the procedure well. Findings: The scope was passed directly into the upper esophagus and advanced to the third portion of the duodenum. The post bulbar duodenum and duodenal bulb were normal with normal mucosa and conniventes. There was no scalloping of the duodenal conniventes and biopsies were taken from the second and first portion of the duodenum to rule out celiac disease. The scope was withdrawn through a normal duodenal bulb and pylorus into the stomach. There was very mild bile reflux with mild linear reactive gastropathy of the prepyloric antrum. The remainder of the body and fundus of the stomach were normal. Upon retroflexion there was no hiatal hernia. The scope was then withdrawn into the esophagus. There was no evidence of reflux esophagitis or So's. The remainder of the esophageal mucosa was normal. Impression: 1. Mild prepyloric antral linear reactive gastropathy with bile reflux Plan: I will follow-up the biopsies and proceed with diagnostic colonoscopy. We will discuss treatment options.
--- NOTE | 2024-08-10 08:46 | HMH.PROCNOTE ---
[facility] Procedure Note Date: 08/10/24 Time: 08:58 Procedure Note:: Colonoscopy Procedure Report: Colonoscopy with cold biopsies Endoscopist: Donal Kennedy II, MD Referring physician: Jeri Pisano PA-C Date of Procedure: August 10, 2024 Equipment: Olympus 190 variable stiffness pediatric colonoscope Sedation: MAC sedation Indication: Mrs. Briseno is a 19-year-old female who is here for diagnostic colonoscopy. She had diagnostic EGD showing very mild antral gastropathy. She was diagnosed with C. difficile at the age of 14. This was successfully treated. Since then, she has had diarrhea daily that never resolved. She has 2 or 3 diarrhea stools with fecal urgency. She does have moderate gassiness, bloating and left upper quadrant abdominal pain. She also has had nausea with intermittent vomiting. She has never had gallbladder issues. She will have occasional heartburn and reports no dysphagia. She has never had EGD or colonoscopy. She does have a history of thoracic outlet syndrome and has been followed by [facility]. The patient's labs on 07/26 showed normal hemoglobin/hematocrit (15.0/43.9). Her chemistries were normal with normal ALT 60 and alkaline phosphatase 63. She had stool PCR testing on 06/08 that was normal. Her fecal calprotectin was less than 16 in August 2020. Procedure: Prior to the procedure, a history and physical exam was performed, and patient's medications and allergies were reviewed. The risks, benefits and alternatives of the sedation and procedure were discussed with the patient. All questions were answered and informed consent was obtained. The patient was brought to the procedure room. Patient identification and proposed procedure were verified by the physician and the nurse. The patient was placed in a left lateral decubitus position and the scope was passed under direct vision. Throughout the procedure, the patient's blood pressure, pulse, and oxygen saturations were monitored continuously. The colonoscopy was accomplished without difficulty. The patient tolerated the procedure well. Findings: On digital rectal examination there was normal rectal tone. There were no external hemorrhoids. The colonoscope was introduced through the anal canal to the rectum and advanced to the cecum. The ileocecal valve and appendiceal orifice were identified. The scope was advanced a short distance into the ileum which appeared grossly normal. The scope was then withdrawn into the colon. The cecum, ascending, transverse, descending, sigmoid and rectum were grossly normal. There were no mucosal abnormalities identified. Random biopsies x 4 were taken from the right colon to rule out microscopic colitis. Upon retroflexion within the rectum there were grade 1 internal hemorrhoids.The preparation was excellent throughout with [place] Preparation Score of 9. The cecal time was 11 minutes. Impression: 1. Normal colonoscopy with intubation of the terminal ileum Plan: I will follow-up the biopsies to rule out microscopic colitis. I do feel that she has IBS?D. I do feel that she would benefit from Viberzi. Viberzi (Eluxadoline) is a very good therapy for the treatment of diarrhea from irritable bowel syndrome. Viberzi is primarily utilized in patients with severe IBS?D. This drug is effective for the diarrhea and is a very good option for those who have failed other treatments for the IBS with diarrhea. There is a small risk of pancreatitis associated with this medication (0.3%) especially in those who have heavy alcohol use or had previous gallbladder removal. It is recommended not to use Viberzi in the setting of active alcohol use or prior cholecystectomy. This medication is taken twice daily with food. She should see results within a few days and if this is effective, I will continue this as a maintenance treatment.
[2024-08-10 09:00] VITALS: BP 116/67; PULSE 96; RESP 18; O2SAT 97
[2024-08-10 09:10] VITALS: BP 115/69; PULSE 82; RESP 16; O2SAT 100
[2024-08-10 09:20] VITALS: BP 128/80; PULSE 88; RESP 16; O2SAT 100
[2024-08-10 09:30] VITALS: BP 122/73; PULSE 88; RESP 16; O2SAT 100
== END 2024-08-10 09:33 | disposition home or self-care (01) ==
PROVIDERS: PCP Student in an Organized Health Care Education/Training Program; Visit Provider Internal Medicine Gastroenterology
PROC: 0DJ08ZZ Inspection of Upper Intestinal Tract, Via Natural or Artificial Opening Endoscopic (ICD-10-PCS; CPT 43235; principal; 2024-08-10 08:30)
DX: R11.2 Nausea with vomiting, unspecified (principal); K52.9 Noninfective gastroenteritis and colitis, unspecified; R14.0 Abdominal distension (gaseous); R10.9 Unspecified abdominal pain; K31.9 Disease of stomach and duodenum, unspecified; K64.0 First degree hemorrhoids
CPT/HCPCS: 43239; 45380; 81025; J7120

== ENCOUNTER 2024-08-14 11:12 | Emergency (ER) | payer OTHER, SELFPAY ==
[2024-08-14 12:14] LABS: Color,Urine Dark Yellow (Yellow); UTC Pregnancy Test, Urine Negative (Negative)
[2024-08-14 12:15] LABS: Apearance,Urine Cloudy (Clear); Bilirubin,Urine Negative (Negative); Blood, Urine 1+ (Negative); Glucose,Urine (UA) Negative (Negative); Ketones,Urine Negative (Negative); Protein,Urine Trace (Negative); Specific Gravity, Urine 1.025 (1.005-1.030); UTC Leukocyte Esterase,Urine Trace (Negative); UTC Nitrate,Urine Negative (Negative); Urobilinogen,Urine 0.2 EU/dl (0.2)
[2024-08-14 12:20] VITALS: BP 142/95; PULSE 97; RESP 18; TEMP 36.9; O2SAT 100; BMI 35.9
--- NOTE | 2024-08-14 12:37 | ED_ITS ---
Discharge Plan Disposition Patient Disposition: Home, Self-Care Condition: Good Prescriptions Prescriptions: New cephalexin 500 mg tablet 500 mg PO BID 7 Days Qty: 14 0RF No Action Nexplanon 68 mg implant 68 implant subdermal DIRECTED Viberzi 100 mg tablet 100 mg PO BID Qty: 60 5RF Rx Instructions: Please take 1 tablet p.o. twice daily and must administer with a meal/food Referrals Follow up/Referrals: Jeri Pisano PA [Primary Care Provider] - See instructions Activity Restrictions/Add. Instructions Additional Instructions/Restrictions: Increase fluids, water and not soda or tea. Can drink cranberry juice or cranberry extract. Wipe front to back Wear cotton underwear Empty bladder after intercourse Start antibiotics immediately and make sure you take the full course although you may start to see improvement over the next 48 hours. You can eat yogurt or take probiotics to decrease diarrhea or yeast infection caused by the antibiotic Be sure to follow-up anytime for new or worsening symptoms in 48 hours for wound urine culture results be sure to let you PCP no recent urine for culture so they can request records and ensure that you have appropriate antibiotic if you are not getting better or getting worse. If symptoms worsen or do not improve return or be seen in the ER. Follow-up with primary care this week. Clinical Impressions Clinical Impression: UTI (urinary tract infection) Instructions Patient Instructions: DI for Urinary Tract Infection (UTI) Print Language Print Language: Portuguese [facility] HPI General Stated complaint: uti Mode of Arrival: Ambulatory Source of Information: Patient Limitations: No Limitations Time Seen by Provider: 08/14/24 12:37 Description of Symptoms (Recalled from Triage Doc. by RN): PATIENT C/O FREQUENCY AND BURNING WITH URINATION SINCE YESTERDAY HEENT Symptoms (Recalled from RN notes): No Resp Symptoms (Recalled from RN notes): No Skin Symptoms (Recalled from RN notes): No MS Symptoms (Recalled from RN notes): No Functional Status (Recalled from RN notes): WNL History of Present Illness Provider Complaint: 19-year-old female presents for complaints of frequency, and burning with urine nation since yesterday. Patient states she had a UTI 2 weeks ago and was placed on Macrobid and finished with the dosing and symptoms returned. Related Data Home Medications ?Medication ?Instructions ?Recorded ?Confirmed etonogestrel 68 mg subdermal 68 implant subdermal DIRECTED 05/24/24 08/14/24 implant (Nexplanon) Previous Rx's ?Medication ?Instructions ?Recorded eluxadoline 100 mg tablet (Viberzi) 100 mg PO BID #60 tabs 08/10/24 cephalexin 500 mg tablet 500 mg PO BID 7 days #14 tabs 08/14/24 Allergies Allergy/AdvReac Type Severity Reaction Status Date / Time azithromycin (AZITHROMYCIN) Allergy Unknown I-RASH Verified 08/10/24 07:48 Worker's Comp Is this a Worker's Comp case?: No [facility] Disclaimer: The information contained in this section may have been updated after the patient was seen, as this information can be updated by other users. Medical History , SENIOR APPLICATION SOFTWARE ENGINEER) Thoracic outlet syndrome of both thoracic outlets Encounter for initial prescription of Nexplanon Cough Sinusitis Anxiety and depression Thoracic outlet syndrome Bilateral otitis media Sinusitis Left otitis media Surgical History , SENIOR APPLICATION SOFTWARE ENGINEER) History of thoracic surgery H/O decompression of ulnar nerve History of breast biopsy Family History , SENIOR APPLICATION SOFTWARE ENGINEER) No significant family history Social History , SENIOR APPLICATION SOFTWARE ENGINEER) Smoking Status: Never smoker alcohol intake: never substance use type: denies use current occupational status: student Travel in the last 8 weeks: None household members: family housing: house ROS Obtained: Yes Systems reviewed as appropriate & no additional complaints except as documented Physical Exam General General appearance: alert and in no apparent distress ENT ENT exam: Present normal exam Neck Neck exam: Present normal inspection Respiratory Respiratory exam: Present normal lung sounds bilaterally Cardiovascular Cardiovascular exam: Present regular rate and normal rhythm Neurological Exam Neurological exam: Present alert and oriented X3 Lymphatic Lymphatic Findings: no adenopathy Medical Decision Making Medical Records Medical records reviewed: Yes I reviewed the patient's medical records. Screening: Per USPSTF and CDC recommendations, given the prevalence of disease in our [facility], it is our hospital?s policy to screen for HIV and viral Hepatitis for all patients aged 18 and over and those with ongoing risk factors. Sidney Inquiry Pt receiving controlled substance: No Sidney was queried for this patient: No Vital Signs: 08/14/24 12:20 Temperature 98.5 F Temperature Source Oral Pulse Rate [Left Brachial] 97 H Respiratory Rate 18 Blood Pressure [Left Arm] 142/95 H Blood Pressure Mean [Left Arm] 110 Blood Pressure Source [Left Arm] Automatic Cuff Blood Pressure Position [Left Arm] Sitting 02 Sat by Pulse Oximetry 100 Oxygen Delivery Method Room Air Lab Data Lab results reviewed: Yes I reviewed the patient's lab results. Lab Results 08/14/24 12:03: Urine Color Dark yellow, Urine Appearance Cloudy, Urine pH 7.0, Ur Specific [place] 1.025, Urine Protein Trace, Urine Glucose (UA) Negative, Urine Ketones Negative, Urine Blood 1+, Urine Nitrate Negative, Urine Bilirubin Negative, Urine Urobilinogen 0.2, Ur Leukocyte Esterase Trace, Tst Clinic Negative
[2024-08-14 12:40] VITALS: BP 142/95; PULSE 97; RESP 18; TEMP 36.9; O2SAT 100
== END 2024-08-14 12:43 | disposition home or self-care (01) ==
PROVIDERS: Emergency Provider Nurse Practitioner Family; PCP Student in an Organized Health Care Education/Training Program
DX: N39.0 Urinary tract infection, site not specified (principal)
CPT/HCPCS: 81003; 81025; 99213; G0381

== ENCOUNTER 2024-10-13 13:11 | Emergency (ER) | payer OTHER, SELFPAY ==
[2024-10-13 14:54] VITALS: BP 133/87; PULSE 102; RESP 18; TEMP 37.1; O2SAT 99; BMI 30.5
--- NOTE | 2024-10-13 15:01 | ED_ITS ---
Discharge Plan Disposition Patient Disposition: Home, Self-Care Condition: Good Prescriptions Prescriptions: New amoxicillin 500 mg capsule 500 mg PO TID 7 Days Qty: 21 0RF oseltamivir [Tamiflu] 75 mg capsule 75 mg PO Q12H 5 Days Qty: 10 0RF No Action Nexplanon 68 mg implant 68 implant subdermal DIRECTED Viberzi 100 mg tablet 100 mg PO BID Qty: 60 5RF Rx Instructions: Please take 1 tablet p.o. twice daily and must administer with a meal/food Referrals Follow up/Referrals: Jeri Pisano PA [Primary Care Provider] - See instructions Activity Restrictions/Add. Instructions Additional Instructions/Restrictions: * Start Tamiflu today if you are going to take it. Discussed risk and possible benefits. * Lots of rest * Increase Fluids water, Gatorade, powerade, pedialyte,if /toddler/child * Alternate Tylenol and / or ibuprofen as discussed for fever, aches, chills Follow up IMMEDIATELY with your family doctor for new or worsening Symptoms OR no noticeable improvement over the next 48-72 hours, 911 for difficulty or breathing * You or your child area contagious until no fever, aches, chills for 24 hours with medication for symptoms * Help Prevent the spread of influenza: * ?Wash your hands often. Use soap and water. Wash your hands after you use the bathroom, change a child's diapers, or sneeze. Wash your hands before you prepare or eat food. Use gel hand cleanser that has 60% alcohol, when soap and water are not available. Do not touch your eyes, nose, or mouth unless you have washed your hands first. * Cover your mouth when you sneeze or cough. Cough into a tissue or the bend of your arm. If you use a tissue, throw it away immediately and wash your hands. * Clean shared items with a germ-killing domestic cleaner. Clean table surfaces, doorknobs, and light switches. Do not share towels, silverware, and dishes with people who are sick. Wash bed sheets, towels, silverware, and dishes with soap and water. * Wear a mask over your mouth and nose if you are sick. The face mask may help protect others from becoming infected with the flu. Wear the mask when in common areas of your home or if you seek care with a healthcare provider. * Stay away from others if you are sick. Stay at home until 24 hours after your fever and symptoms are gone. Clinical Impressions Clinical Impression: Influenza, Otitis media Stand Alone Forms Stand Alone Forms: Work/School Release Instructions Patient Instructions: Middle Ear Infection, DI for Influenza -- Adult, Influenza Print Language Print Language: Cypriot Discharge ED Provider: Mervat Green [facility] [place] HPI General Stated complaint: runny nose, body aches, sore throat, Headache Mode of Arrival: Ambulatory Source of Information: Patient Limitations: No Limitations Time Seen by Provider: 10/13/24 15:01 Description of Symptoms (Recalled from Triage Doc. by RN): FLU LIKE SYMPTOMS HEENT Symptoms (Recalled from RN notes): No Resp Symptoms (Recalled from RN notes): Yes Skin Symptoms (Recalled from RN notes): No MS Symptoms (Recalled from RN notes): No Functional Status (Recalled from RN notes): NA History of Present Illness Provider Complaint: Pt states that she has been having pain and pressure in her ears for several days feels like she may have an ear infection and then started with flu like symptoms body aches, chills, headache and over all not feeling well Related Data Home Medications ?Medication ?Instructions ?Recorded ?Confirmed etonogestrel 68 mg subdermal 68 implant subdermal DIRECTED 05/24/24 10/13/24 implant (Nexplanon) Previous Rx's ?Medication ?Instructions ?Recorded eluxadoline 100 mg tablet (Viberzi) 100 mg PO BID #60 tabs 08/10/24 amoxicillin 500 mg capsule 500 mg PO TID 7 days #21 caps 10/13/24 oseltamivir 75 mg capsule (Tamiflu) 75 mg PO Q12H 5 days #10 caps 10/13/24 Allergies Allergy/AdvReac Type Severity Reaction Status Date / Time azithromycin (AZITHROMYCIN) Allergy Unknown I-RASH Verified 08/10/24 07:48 Worker's Comp Is this a Worker's Comp case?: No [facility] Disclaimer: The information contained in this section may have been updated after the patient was seen, as this information can be updated by other users. Medical History , DIRECTOR OF PLANT OPERATIONS) Thoracic outlet syndrome of both thoracic outlets Encounter for initial prescription of Nexplanon Cough Sinusitis Anxiety and depression Thoracic outlet syndrome Bilateral otitis media Sinusitis Left otitis media Surgical History , DIRECTOR OF PLANT OPERATIONS) History of thoracic surgery H/O decompression of ulnar nerve History of breast biopsy Family History , DIRECTOR OF PLANT OPERATIONS) No significant family history Social History , DIRECTOR OF PLANT OPERATIONS) Smoking Status: Never smoker alcohol intake: never substance use type: denies use current occupational status: student Travel in the last 8 weeks: None household members: family housing: house Have you lived/traveled outside US in past 30 days?: No Contact w/someone who lives/traveled outside US past 30 days?: No Exposure to someone with infectious disease in past 14 days?: No Do you have a fever (greater than 100.4 F or 38 C)?: No Have you tested positive for COVID-19: No Exposed to someone with COVID-19 in past 14 days?: No Do you have a sore throat?: Yes Do you have a cough?: No Do you have any weakness?: No Do you have any diarrhea?: No Are you experiencing any unusual bleeding?: No Do you have any muscle aches/pain?: Yes Do you have any abdominal pain?: No Are you experiencing loss of taste or smell?: No ROS Obtained: Yes All systems reviewed & no additional complaints except as documented and Yes Systems reviewed as appropriate & no additional complaints except as documented Constitutional Constitutional: Reports system reviewed and no additional complaints, except as documented, Reports as per HPI, Reports body ache, Reports chills and Reports headache(s) ENT Ears, Nose, Mouth, and Throat: Reports system reviewed and no additional complaints, except as documented, Reports as per HPI, Reports otalgia, Reports headache(s), Reports nasal congestion and Reports nasal discharge Cardiovascular Cardiovascular: Reports system reviewed and no additional complaints, except as documented and Reports as per HPI Respiratory Respiratory: Reports system reviewed and no additional complaints, except as documented and Reports as per HPI Gastrointestinal Gastrointestingal: Reports system reviewed and no additional complaints, except as documented and as per HPI Neurologic Neurologic: Reports headache(s) Physical Exam General General appearance: alert and in no apparent distress ENT ENT exam: Present mucous membranes moist Expanded ENT Exam TM/Canal exam: Right TM: erythema and bulging Nose exam: Absent sinus tenderness Throat exam: Present normal inspection Chest Chest inspection: Present normal inspection and symmetric chest wall rise Respiratory Respiratory exam: Present normal lung sounds bilaterally; Absent respiratory distress or wheezes Cardiovascular Cardiovascular exam: Present regular rate, normal rhythm and normal heart sounds Abdominal Exam Abdominal exam: Present soft and normal bowel sounds; Absent distention or t enderness Neurological Exam Neurological exam: Present alert, oriented X3 and normal gait Medical Decision Making Medical Records Screening: Per USPSTF and CDC recommendations, given the prevalence of disease in our region, it is our hospital?s policy to screen for HIV and viral Hepatitis for all patients aged 18 and over and those with ongoing risk factors. Sidney Inquiry Pt receiving controlled substance: No Sidney was queried for this patient: No Vital Signs: 10/13/24 14:54 Temperature 98.7 F Temperature Source Oral Pulse Rate [Left Radial] 102 H Respiratory Rate 18 Blood Pressure [Right Arm] 133/87 Blood Pressure Mean [Right Arm] 102 02 Sat by Pulse Oximetry 99 Lab Data Lab results reviewed: Yes I reviewed the patient's lab results.
[2024-10-13 15:02] LABS: UTC Influenza A Antigen Positive (Negative); UTC Influenza B Antigen Negative (Negative)
[2024-10-13 15:09] VITALS: BP 133/87; PULSE 102; RESP 18; TEMP 37.1; O2SAT 99
== END 2024-10-13 15:12 | disposition home or self-care (01) ==
PROVIDERS: Emergency Provider Nurse Practitioner; PCP Student in an Organized Health Care Education/Training Program
DX: J11.1 Influenza due to unidentified influenza virus with other respiratory manifestations (principal); H66.90 Otitis media, unspecified, unspecified ear
CPT/HCPCS: 87804; 99213; G0381

== ENCOUNTER 2025-01-04 08:50 | Outpatient (CLI) | payer OTHER, SELFPAY ==
--- NOTE | 2025-01-04 09:00 | US_ITS ---
PROCEDURE INFORMATION: Exam: US Right Breast, Complete Exam date and time: 01/04/2025 8:58 AM Age: 19 years old Clinical indication: Continue short-term surveillance of a right breast mass TECHNIQUE: Imaging protocol: Complete ultrasound of all four quadrants of the right breast and the retroareolar regions, including ultrasound of the axilla when performed. COMPARISON: US BREAST RT COMPLETE 07/05/2024 11:03 AM Sonogram dated 10/30/2023 FINDINGS: ULTRASOUND: Breast ultrasound findings: Sonographic images of the right breast including the retroareolar region, all 4 quadrants and the axilla demonstrates a stable hypoechoic ovoid solid-appearing mass in the 11 o'clock axis 2 cm from the nipple measuring 0.5 x 0.4 x 0.5 cm in dimension. This was previously labeled as retro areolar. No other solid or cystic masses are noted in the remainder of the right breast. No architectural distortion or acoustical shadowing. No skin thickening or axillary adenopathy. IMPRESSION: Stable probably benign subcentimeter right breast mass compared to prior sonograms dating back to and including 10/30/2023. A six-month follow-up targeted right breast ultrasound is recommended for continued close surveillance ASSESSMENT: BI-RADS Category 3: Probably benign.
== END 2025-01-04 23:59 | disposition home or self-care (01) ==
LOC: RAD 08:51
PROVIDERS: PCP Nurse Practitioner Family; Visit Provider Nurse Practitioner Family
DX: N63.11 Unspecified lump in the right breast, upper outer quadrant (principal)
CPT/HCPCS: 76641

== ENCOUNTER 2025-05-03 10:23 | Outpatient (CLI) | payer OTHER, SELFPAY ==
[2025-05-03 16:08] LABS: Influenza A, PCR Not Detected (NotDetected); Influenza B, PCR Not Detected (NotDetected)
[2025-05-04 01:08] LABS: Coronavirus 19, PCR Detected (NotDetected)
--- OUTSIDE RECORDS SUMMARY | 2025-05-04 12:18 | XMS_ITS | Clinical Summary ---
Author Organization [facility] Address [address] [place] [address] Care Team Providers Care Cork Tile Floor Layer Name Role Phone Christel Johnson Primary Care Provider [phone] Allergies Active Allergy Reactions Criticality Noted Date Comments Azithromycin Rash,Unknown - Patie nt states they do not know rxn details Low 12/01/2018 Medications amoxicillin (Amoxil) 500 MG capsule 11/07/2021 Active Active Problems Problem Noted Date Diagnosed Date Sprain of anterior cruciate ligament of left kne e 11/15/2021 Acute lateral meniscus tear of left knee 022 Acute pain of right knee 11/12/2021 Social History Tobacco Use Types Packs/Day Years Used Date Smoking Tobacco: Never PHQ-2 Answer Date Recorded Patient Health Questionnaire-2 Score 0 11/12/2021 Comments Unknown Sex and Gender Information Value Date Recorded Sex Assigned at Not on file Legal Sex Female 7:14 PM EDT Gender Identity Not on file Sexual Orientation Not on file Last Filed Vital Signs Vital Sign Reading Time Taken Comments Blood Pressure 154/93 11/15/2021 10:32 AM EST Pulse 94 11/15/2021 10:32 AM EST Temperature 36.7 C (98.1 F) 01/20/2019 8:56 AM EDT Respiratory Rate - - Oxygen Saturation 100% 11/15/2021 10:32 AM EST Inhaled Oxygen Concentration - - Weight 70.3 kg (155 lb) 11/14/2021 9:28 AM EST Height 172.7 cm (5' 8 ) 11/14/2021 9:28 AM EST Body Mass Index 23.57 11/14/2021 9:28 AM EST Plan of Treatment Health Maintenance Due Date Last Done Comments [facility]-Depression Screening 2004 [facility]-Infant/Child/Adol SDOH Screenings 2004 [facility]- SDOH Screenings 2022 [facility]-Adult SDOH Screenings 2022 [id number] Vaccine (1 - 2023- season) 2024 [facility]-DTaP,Tdap,and Td Vaccines (2 - Td or Tdap) 02/01/2025 02/01/2015 [facility]-Influenza Vaccine (#1) 2025 07/25/2019, [facility]-Zoster Vaccines (1 of 2) 2054 02/01/2015, 05/29/2005 [facility]-HIB Vaccines Completed 05/29/2005, , 2004 [facility]-Hepatitis B Vaccines Completed 005, 2004, 2004 [facility]-IPV Vaccines Completed 05/23/2008, , 2004, Additional history exists [facility]-Varicella Vaccines Completed 02/01/2015, 2004 HPV Vaccines Completed 02/03/2018, 05/18/2017 [facility]-Hepatitis A Vaccines Completed 08/10/2018, 10/08 [facility]-Pneumococcal Vaccine: Pediatrics (0 to 5 Years) and At-Risk Patients (6 to 49 Years) Aged Out No longer eligible based on patient's age to complete this topic [facility]-Rotavirus Vaccines Aged Out No lo nger eligible based on patient's age to complete this topic Insurance [employer] [facility] MEDICAID Care Teams Cork Tile Floor Layer Relationship Specialty Start Date End Date Christel Johnson PA [address] [place] [address] PCP - General 01/18/21
--- OUTSIDE RECORDS SUMMARY | 2025-05-04 12:18 | XMS_ITS | Clinical Summary ---
Author Organization [facility] Address [address] [place] [id number] Care Team Providers Care Batting Machine Operator Insulation Name Role Phone Christel Johnson PA-C Primary Care Provider [phone] Source Comments [facility] is fully rolled out with thefollowing exceptions:General Clinical Research [facility] Allergies Active Allergy Reactions Criticality Noted Date Comments Azithromycin Dihydrate Rash/Hives Low 03/03/2019 Medications medroxyPROGESTER one (DEPO-PROVERA) 150 MG/ML injection Active saline (AYR) nasal gel Give 1 [place] into each side of nose every day as needed. Active loratadine (CLARITIN) 10 MG tablet Take by mouth 1 time a day. Active acetaminophen (TYLENOL) 325 MG tabletIndication s:Thoracic outlet syndrome Take 2 Tabs (650 mg total) by mouth every 6 hours as needed for mild pain. 05/16/2020 Active dicyclomine (BENTYL) 10 MG capsuleIndicatio ns:Abdominal pain, generalized Take 1 Cap (10 mg total) by mouth every 6-8 hours as needed for mild pain or cramping. 90 Cap 2 08/23/2020 Active diclofenac sodium (VOLTAREN) 75 MG delayed release tablet Take 1 tablet (75 mg total) by mouth 2 times a day. 42 tablet 1 11/27/2021 Active Active Problems Problem Noted Date Diagnosed Date Acute pain of left knee 12/05/2021 Pain of upper abdomen 08/23/2020 Anticoagulated 05/03/2020 Chronic left shoulder pain 04/30/2020 Muscle weakness 04/30/2020 Family History Medical History Relation Name Comments Abdominal Surgery in Childhood Father Cancer Maternal Grandfather Abdominal Surgery in Childhood Mother Anemia Mother Cancer Paternal Grandfather Intestinal Polyps Paternal Grandfather Diabetes Mellitus Paternal Grandmother Relation Name Status Comments Father Maternal Grandfather Mother Alive Paternal Grandfather Paternal Grandmother Social History Tobacco Use Types Packs/Day Years Used Date Smoking Tobacco: Never Smokeless Tobacco: Never Alcohol Use Standard Drinks/Week Comments Never 0 (1 standard drink = 0.6 oz pur e alcohol) AUDIT-C Answer Date Recorded Q1: How often do you have a drink containing alc ohol? Never 08/23/2020 Average Number of Drinks Not on file 020 Frequency of Binge Drinking Not on file 08/07 Intimate Partner Violence Answer Date R ecorded If you are in a relationship , do you feel safe in that relationship? Yes 08/07/2023 If you are in a relationship , do you feel safe in that relationship? Yes 08/07/2023 Safety and Environment Answer Date Miguel rded Do you have any concerns of physical abuse, sexual abuse, or neglect of your child? No 08/07/2023 Is an adult hurting you or your family? No 08/07/2023 Has someone ever touched you in a sexual way that was not ok with you? No 08/07/2023 Is someone hurting your or your family? No 08/07/2023 Historical abuse worry Not on file 3 If you have firearms in the home, are they all in locked storage AND unloaded? Not on file 08/07/2023 Comments No Sex and Gender Information Value Date Recorded Sex Assigned at Not on file Legal Sex Female 4:37 PM EDT Gender Identity Not on file Sexual Orientation Not on file Last Filed Vital Signs Vital Sign Reading Time Taken Comments Blood Pressure 133/86 08/23/2020 9:51 AM EST Pulse 89 08/23/2020 9:51 AM EST Temperature 37 C (98.6 F) 05/16/2020 11:30 AM EDT Respiratory Rate 24 05/16/2020 11:30 AM EDT Oxygen Saturation 97% 05/16/2020 11:30 AM EDT Inhaled Oxygen Concentration - - Weight 76.8 kg (169 lb 5 oz) 08/23/2020 9:51 AM EST Height 166.7 cm (5' 5.63 ) 08/23/2020 9:[address] Body Mass Index 27.64 08/23/2020 9:51 AM EST Plan of Treatment Health Maintenance Due Date Last Done Comments MENINGOCOCCAL B VACCINE (1 of 2 - Standard) 2020 COVID-19 Vaccine ( - season) 2024 AMB SEASONAL FLU VACCINE (#1) 07/08/2025 05/15/2023, 06/13/2022, 07/25/2019, Additional history exists DTAP/Tdap/Td IMMUNIZATION (8 - Td or Tdap) 06/27/2032 06/27/2022, 02/01/2015, 05/23/2008, Additional history exists HEPATITIS B IMMUNIZATION Completed 005, 2004, 2004 HIB IMMUNIZATION Completed 05/29/2005, , 2004 PNEUMOCOCCAL IMMUNIZATION Aged Out 2004, 2004, 2004, Additional history exists No longer eligible based on patient's age to complete this topic IPV IMMUNIZATION Completed 05/23/2008, , 2004, Additional history exists MMR IMMUNIZATION Completed 05/23/2008, 08/26/2005 VARICELLA IMMUNIZATION Completed 02/01/2015, 2004 HPV IMMUNIZATION Completed 02/03/2018, 05/18/2017 HEPATITIS A IMMUN (OPTIONAL 2-17 YRS) Discontinued 08/10/2018, 10/21/2017 MCV4 IMMUNIZATION Completed 11/12/2020, 02/01/2015 Respiratory Syncytial Virus (RSV) <20mo Aged Out No longer eligible based on patient's age to complete this topic Insurance [employer] [facility] AENA [facility] Care Teams Batting Machine Operator Insulation Relationship Specialty Start Date End Date Christel Johnson PA-C [address] [place] [address] PCP - General 11/25/21
--- OUTSIDE RECORDS SUMMARY | 2025-05-04 12:18 | XMS_ITS | Encounter Summary ---
Author Organization [facility] Address [address] [place] [address] Care Team Providers Care Associate Professor Of Surgery Name Role Phone Christel Johnson PA-C Primary Care Provider [phone] Encounter Details Date Type Department Care Team (Late st Contact Info) Description 04/10/2020 Telephone [facility] Division of Orthopaedics [address] [place] [phone] Nelda Belle, DIRECTOR OF ACCOUNTING-BUILDING CONSTRUCTION INSPECTOR Orthopaedic Surgery [address] [place] [address] [address] [place] [address] Social History Tobacco Use Types Packs/Day Years Used Date Smoking Tobacco: Never Smokeless Tobacco: Never Alcohol Use Standard Drinks/Week Comments Never 0 (1 standard drink = 0.6 oz pur e alcohol) AUDIT-C Answer Date Recorded Frequency of Alcohol Consumption Never 03/03/2019 Average Number of Drinks Not on file 019 Frequency of Binge Drinking Not on file 02/06 Comments No Sex and Gender Information Value Date Recorded Sex Assigned at Not on file Legal Sex Female 4:37 PM EDT Gender Identity Not on file Sexual Orientation Not on file documented as of this encounter Plan of Treatment Not on file documented as of this encounter Visit Diagnoses Not on filedocumented in this encounter Additional Health Concerns Infection Onset Date Last Indicated Resolved Time COVID-19 Rule Out 05/11/2020 05/11/2020 05/11/2020 11:02 PM EDT documented as of this encounter Care Teams Associate Professor Of Surgery Relationship Specialty Start Date End Date Christel Johnson PA-C [address] [place] [address] PCP - General 11/25/21 documented as of this encounter
== END 2025-05-03 23:59 | disposition home or self-care (01) ==
LOC: LAB.DROPOF 05-04 12:16
PROVIDERS: PCP Student in an Organized Health Care Education/Training Program; Visit Provider Student in an Organized Health Care Education/Training Program
DX: R50.9 Fever, unspecified (principal)
CPT/HCPCS: 87631

== ENCOUNTER 2025-06-09 14:06 | Outpatient (CLI) | payer OTHER, SELFPAY ==
--- OUTSIDE RECORDS SUMMARY | 2025-06-09 14:08 | XMS_ITS | Clinical Summary ---
Author Organization [facility] Address [address] [place] [address] Care Team Providers Care Follow Up Manager Name Role Phone Christel Johnson Primary Care Provider [phone] Allergies Active Allergy Reactions Criticality Noted Date Comments Azithromycin Rash,Unknown - Patie nt states they do not know rxn details Low 12/01/2018 Medications amoxicillin (Amoxil) 500 MG capsule 11/07/2021 Active Active Problems Problem Noted Date Diagnosed Date Sprain of anterior cruciate ligament of left kne e 11/15/2021 Acute lateral meniscus tear of left knee 022 Resolved Problems Problem Noted Date Diagnosed Date Resolved Date Acute pain of right knee 11/12/2021 Social [...] Date Last Done Comments [facility]-Depression Screening 2004 [facility]-/Child/Adol SDOH Screenings 2004 [facility]- SDOH Screenings 2022 [facility]-Adult SDOH Screenings 2022 [facility]-DTaP,Tdap,and Td Vaccines (2 - Td or Tdap) 02/01/2025 02/01/2015 [id number] Vaccine (1 - season) 2025 [facility]-Influenza Vaccine (#1) 2025 07/25/2019, [facility]-Pap Smear 2025 [facility]-Zoster Vaccines (1 of 2) 2054 02/01/2015, [...] age to complete this topic Insurance [employer]ETNA [facility] MEDICAID Care Teams Follow Up Manager Relationship Specialty Start Date End Date Christel Johnson PA [address] [place] [address] PCP - General 01/18/21
--- OUTSIDE RECORDS SUMMARY | 2025-06-09 14:08 | XMS_ITS | Encounter Summary ---
Author Organization [facility] Address [address] [place] [address] Care Team Providers Care Clinical Nurse Specialist Name Role Phone Christel Johnson PA-C Primary Care Provider [phone] Encounter Details Date Type Department Care Team (Late st Contact Info) Description 04/10/2020 Telephone [facility] Division of Orthopaedics [address] [place] [phone] Nelda Belle, PRODUCTION COOK-PROJECT MANAGER Orthopaedic Surgery [address] [place] [address] [address] [place] [address] Social History Tobacco Use Types [...] documented as of this encounter Care Teams Clinical Nurse Specialist Relationship Specialty Start Date End Date Christel Johnson PA-C [address] [place] [address] PCP - General 11/25/21 documented as of this encounter
--- OUTSIDE RECORDS SUMMARY | 2025-06-09 14:08 | XMS_ITS | Clinical Summary ---
Author Organization [facility] Address [address] [place] [address] Care Team Providers Care Solderer Production Line Name Role Phone Christel Johnson PA-C Primary Care Provider [phone] Source Comments [facility] is fully rolled out with thefollowing exceptions:General Clinical Research [facility] Allergies Active Allergy Reactions Criticality Noted Date Comments Azithromycin Dihydrate Rash/Hives Low 03/03/2019 Medications medroxyPROGESTER one (DEPO-PROVERA) 150 MG/ML injection Active saline (AYR) nasal gel Give 1 [place] into each side of nose every day [...] VACCINE (1 of 2 - Standard) 2020 AMB SEASONAL FLU VACCINE (#1) 05/08/2025 05/15/2023, 06/13/2022, 07/25/2019, Additional history exists COVID-19 Vaccine ( - season) 2025 DTAP/Tdap/Td IMMUNIZATION (8 - Td or Tdap) [...] age to complete this topic Insurance AETNA [facility] AENA [facility] Care Teams Solderer Production Line Relationship Specialty Start Date End Date Christel Johnson PA-C [address] [place] [address] PCP - General 11/25/21
--- NOTE | 2025-06-09 15:30 | US_ITS ---
PROCEDURE INFORMATION: Exam: US Right Breast, Complete Exam date and time: 06/09/2025 2:09 PM Age: 20 years old Clinical indication: Follow-up of a right breast finding TECHNIQUE: Imaging protocol: Complete ultrasound of all four quadrants of the right breast and the retroareolar regions, including ultrasound of the axilla when performed. COMPARISON: US BREAST RT COMPLETE 01/04/2025 8:58 AM FINDINGS: ULTRASOUND: Breast ultrasound findings: In the right breast 11 o'clock axis, 2 cm from the nipple there is a stable hypoechoic oval mass measuring 0.3 x 0.4 x 0.4 cm, previously measuring 0.5 x 0.4 x 0.7 cm. Allowing for differences in measuring technique, this is stable. There is no shadowing or distortion. No additional masses are seen throughout the right breast. No axillary adenopathy. IMPRESSION: Mass in the right breast 11 o'clock axis, 2 cm from the nipple is stable since 07/05/2024. Six-month follow-up right breast ultrasound is recommended to confirm 2 years of stability. ASSESSMENT: BI-RADS Category 3: Probably benign.
== END 2025-06-09 23:59 | disposition home or self-care (01) ==
LOC: RAD 14:06
PROVIDERS: PCP Nurse Practitioner Family; Visit Provider Obstetrics & Gynecology
DX: N63.11 Unspecified lump in the right breast, upper outer quadrant (principal)
CPT/HCPCS: 76641